=== PATIENT | female | born 1990 | race American Indian/Alaskan Native ===

== ENCOUNTER 2019-03-04 13:58 | Emergency (ER) | payer MEDICAID ==
[2019-03-04 14:11] VITALS: BP 120/86
--- NOTE | 2019-03-04 14:57 | Emergency Department Report ---
ED Female HPI - General Chief complaint: Urogenital-Female Stated complaint: PELIVIC PAIN Time Seen by Provider: 03/04/19 14:30 Source: patient Mode of arrival: Ambulatory Limitations: No Limitations - History of Present Illness Initial comments: Patient is a 28-year-old female presents emergency room with complaints of pelvic pain for a week. She denies any urinary symptoms, vaginal discharge, vaginal odor, vaginal itching or burning. She states that she last saw an [facility] 9 months ago. Patient reports that she had a miscarriage at home on 2618 but did not follow-up with anyone. She denies any past medical history or allergies medications. - Related Data Previous Rx's Medication Instructions Recorded Last Taken Type cephALEXin [Keflex] 500 mg PO BID 7 Days #14 cap 03/04/19 Unknown Rx Allergies Allergy/AdvReac Type Severity Reaction Status Date / Time No Known Allergies Allergy Unverified 03/04/19 14:06 ED Review of Systems ROS: Stated complaint: PELIVIC PAIN Other details as noted in HPI Comment: All other systems reviewed and negative ED Past Medical Hx - Past Medical History Previous Medical History?: No Additional medical history: Vaginal delivery x 2 - Surgical History Past Surgical History?: No - Social History Smoking Status: Current Every Day Smoker Substance Use Type: Alcohol - Medications Home Medications: Home Medications Medication Instructions Recorded Confirmed Last Taken Type cephALEXin [Keflex] 500 mg PO BID 7 Days #14 cap 03/04/19 Unknown Rx ED Physical Exam - General Limitations: No Limitations General appearance: alert, in no apparent distress - Head Head exam: Present: atraumatic, normocephalic - Eye Eye exam: Present: normal appearance - ENT ENT exam: Present: mucous membranes moist - Respiratory Respiratory exam: Present: normal lung sounds bilaterally. Absent: respiratory distress, wheezes, rales, rhonchi, stridor, chest wall tenderness, accessory muscle use, decreased breath sounds, prolonged expiratory - Cardiovascular Cardiovascular Exam: Present: regular rate, normal rhythm, normal heart sounds. Absent: systolic murmur, diastolic murmur, rubs, gallop - GI/Abdominal GI/Abdominal exam: Present: soft, normal bowel sounds. Absent: distended, tenderness, guarding, rebound, rigid - Back Exam Back exam: Absent: CVA tenderness (R), CVA tenderness (L) - Neurological Exam Neurological exam: Present: alert, oriented X3 - Psychiatric Psychiatric exam: Present: normal affect, normal mood - Skin Skin exam: Present: warm, dry, intact ED Course Vital Signs 03/04/19 14:06 Temperature 98.8 F Pulse Rate 70 Respiratory 20 Rate Blood Pressure 120/86 O2 Sat by Pulse 98 Oximetry ED Medical Decision Making - Radiology Data Radiology results: report reviewed OB Ultrasound HISTORY: pelvic pain. Patient reports a miscarriage in December of this year, unknown LMP. TECHNIQUE: Grayscale and color Doppler imaging performed. COMPARISON: None FINDINGS: The uterus measures 10.6 x 6.8 x 7.2 cm. There is an intrauterine gestation with crown- rump length of 4.3 cm which correlates with an EGA of 11 weeks and 1 day. Heart rate is 172 bpm. Cervix measures 3.6 cm in length and appears closed. There is a simple right ovarian cyst measuring 3.3 cm. The ovaries otherwise appear unremarkable with normal blood flow. No pelvic free fluid identified. IMPRESSION: 1. Single viable intrauterine gestation as above. 2. Simple right ovarian cyst. Signer Name: Gabino Cleaning MD Signed: 03/04/2019 4:50 PM Workstation Name: [id number] Transcribed By: TERESA Dictated By: Gabino Cleaning MD Electronically Authenticated By: Gabino Cleaning MD Signed Date/Time: 03/04/19 1650 - Medical Decision Making Patient is a 28-year-old female presents emergency room with complaints of pelvic pain for a week. She denies any urinary symptoms, vaginal discharge, vaginal odor, vaginal itching or burning. She states that she last saw an [facility] 9 months ago. Patient [place] [id number] but did not follow-up with anyone. She denies any past medical history or allergies medications. vitals are normal. no abd tenderness on exam. urine preg is positive. UA shows evidence of UTI with 1+ WBC, moderate leukocyte esterase, nitrites. hcg quant [id number]. US OB: 1. Single viable intrauterine gestation as above, 11 weeks 1 day. 2. Simple right ovarian cyst. pt given prescription for keflex for UTI. advised to please take medication as prescribed to completion. Please increase your water intake. Take daily vitamin [id number]. Please follow-up with a [facility] in the next 2-3 days to receive your care. return to the emergency room for any new or worsening symptoms. - Differential Diagnosis IUP, ectopic, UTI, ovarian cyst, miscarriage Critical care attestation.: If time is entered above; I have spent that time in minutes in the direct care of this critically ill patient, excluding procedure time. ED Disposition Clinical Impression: Pelvic pain Qualifiers: Weeks of gestation: 11 weeks Qualified Code(s): Z3A.11 - 11 weeks gestation of Ovarian cyst Qualifiers: Laterality: right Qualified Code(s): N83.201 - Unspecified ovarian cyst, right side UTI (urinary tract infection) Qualifiers: Urinary tract infection type: acute cystitis Hematuria presence: without hematuria Qualified Code(s): N30.00 - Acute cystitis without hematuria Disposition: TO HOME OR SELFCARE Is pt being admited?: No Does the pt Need Aspirin: No Condition: Stable Instructions: (ED), Ovarian Cyst (ED), Urinary Tract Infection in Women (ED) Additional Instructions: please take medication as prescribed to completion. Please increase your water intake. Take daily vitamin [id number]. Please follow-up with a [facility] in the next 2-3 days to receive your care. return to the emergency room for any new or worsening symptoms. Prescriptions: cephALEXin [Keflex] 500 mg PO BID 7 Days #14 cap Referrals: [facility] [Provider Group] - 2-3 Days [facility] [Provider Group] - 2-3 Days [facility] [Provider Group] - 2-3 Days Time of Disposition: 17:20 Print Language: SLOVENIAN
[2019-03-04 15:32] LABS: HCG Qualitative,Urine Positive (Negative)
[2019-03-04 15:33] LABS: Bacteria,Urine 1+ /HPF (Negative); Bilirubin,Urine NEG (Negative); Blood,Urine NEG (Negative); Color,Urine Yellow (Yellow); Mucus,Urine 2+ /HPF; Protein,Urine <15 mg/dL mg/dL (Negative)
--- NOTE | 2019-03-04 16:54 | Ultrasound Report ---
OB Ultrasound HISTORY: pelvic pain. Patient reports a miscarriage in December of this year, unknown LMP. TECHNIQUE: Grayscale and color Doppler imaging performed. COMPARISON: None FINDINGS: The uterus measures 10.6 x 6.8 x 7.2 cm. There is an intrauterine gestation with crown-rump length of 4.3 cm which correlates with an EGA of 11 weeks and 1 day. Heart rate is 172 bpm. Cervix m easures 3.6 cm in length and appears closed. There is a simple right ovarian cyst measuring 3.3 cm. The ovaries otherwise appear unremarkable with normal blood flow. No pelvic free fluid identified. IMPRESSION: 1. Single viable intrauterine gestation as above. 2. Simple right ovarian cyst. Signer Name: Gabino Cleaning MD Signed: 03/04/2019 4:50 PM Workstation Name: [id number]
== END 2019-03-04 17:35 | disposition home or self-care (01) ==
LOC: ED 13:58
DX: O34.81 Maternal care for other abnormalities of pelvic organs, first trimester (principal); N83.201 Unspecified ovarian cyst, right side; O23.41 Unspecified infection of urinary tract in pregnancy, first trimester; O99.331 Smoking (tobacco) complicating pregnancy, first trimester; Z79.899 Other long term (current) drug therapy; Z3A.11 11 weeks gestation of pregnancy
CPT/HCPCS: 36415; 76801; 81001; 81025; 84702